=== PATIENT | female | born 1955 | race Caucasian/White ===

== ENCOUNTER 2022-01-21 12:50 | Emergency (ER) | payer OTHER, SELFPAY ==
--- NOTE | ~2022-01-21 | XR_ITS ---
EXAMINATION: XR chest 1V portable DATE: 01/21/2022 15:44 INDICATION: Shortness of breath and cough TECHNIQUE: frontal view of the chest was obtained. COMPARISON: None FINDINGS: The lungs are clear with no focal airspace opacities, pulmonary edema, pleural effusion or pneumothor ax. The cardiomediastinal silhouette is normal. Mild thoracic dextrocurvature. IMPRESSION: 1. No acute cardiopulmonary disease. Reviewed, dictated and finalized at location A. WPF DEVELOPER
[2022-01-21 13:07] VITALS: BP 117/56; PULSE 118; RESP 15; TEMP 36.4; O2SAT 100
--- NOTE | 2022-01-21 15:29 | ED.URI ---
HPI - URI/Sore Throat General Chief Complaint: Upper Respiratory Infection Stated Complaint: cough and cold symptoms, SOB Time Seen by Provider: 01/21/22 15:05 History of Present Illness HPI Narrative: Patient is a 66-year-old female with a history of hypothyroidism, hypertension, hyperlipidemia presenting with URI symptoms. Patient states that for the last several days she has had nasal congestion, cough and exertional dyspnea. States that her has similar symptoms. States that sometimes she wakes up in the middle of the night with heart palpitations. States that this is a chronic problem but she has noticed it more over the last several days. She denies chest pain, headaches, fever, abdominal pain, nausea or vomiting, diarrhea, leg swelling, dysuria, hematuria. Related Data Allergies Allergy/AdvReac Type Severity Reaction Status Date / Time No Known Allergies Allergy Verified 01/21/22 15:51 Review of Systems Review of Systems: All systems reviewed & are unremarkable except as noted in HPI and below Exam Narrative: GENERAL: Well-appearing, well-nourished, and in no acute distress. HEAD: Normocephalic, atraumatic. EYES: PERRLA and EOMI. ENT: Nares clear, no rhinorrhea or epistaxis. Mucous membranes moist. NECK: Supple. CHEST: Clear to auscultation. No respiratory distress. HEART: Regular rate and rhythm. No murmur heard. Normal peripheral pulses. ABDOMEN: Soft, nontender, nondistended, normal active bowel sounds. EXTREMITIES: Normal range of motion. No edema. SKIN: Warm, dry, no rash. NEURO: No focal deficits. Alert and oriented x3. PSYCH: Normal mood and affect. Course Vital Signs Vital signs: Vital Signs Temperature 97.5 F L 01/21/22 13:07 Pulse Rate 118 H 01/21/22 13:07 Respiratory Rate 15 01/21/22 13:07 Blood Pressure 117/56 L 01/21/22 13:07 Pulse Oximetry 100 01/21/22 13:07 Oxygen Delivery Room Air 01/21/22 13:07 Temperature 97.5 F L 01/21/22 13:07 Pulse Rate 82 01/21/22 17:31 Respiratory Rate 22 H 01/21/22 17:31 Blood Pressure 117/56 L 01/21/22 13:07 Pulse Oximetry 98 01/21/22 17:31 Oxygen Delivery Room Air 01/21/22 16:06 MDM - URI/Sore Throat MDM Narrative Medical decision making narrative: Patient is a 66-year-old female presenting with URI symptoms. Patient initially tachycardic, this had resolved by the time I evaluated her. Normotensive and saturating well on room air. Chest x-ray shows no acute abnormalities. Patient is positive for influenza A. Blood work with mild leukopenia, likely related to viral infection. Potassium was a little low so this was repleted orally. Discussed the work-up with the patient and advised that she try to eat potassium rich foods for the next couple of days as well as drink plenty of fluids. We will send in a prescription for Sadiq Kaplan. Advised that she follow-up with her PCP. Appropriate return precautions given. Patient voiced understanding is agreeable with plan. Discharged in stable condition. Lab Data 01/21/22 15:53 01/21/22 15:53 Labs: Lab Results 01/21/22 01/21/22 01/21/22 Range/Units 15:53 15:53 15:53 WBC 2.8 L (4.5-10.0) K/mm3 RBC 3.54 L (4.2-5.4) M/mm3 Hgb 10.7 L (12.0-15.0) g/dL Hct 31.5 L (37.0-47.0) % MCV 89.0 (80-100) fl MCH 30.2 (26-34) pg MCHC 34.0 (32-36) g/dl RDW 12.3 (11.5-14.5) % Plt Count 229 (150-375) k/mm3 MPV 9.7 (7.4-10.4) fl Immature Gran % (Auto) 0.4 (0-0.5) % Neut % (Auto) 53.5 (45.5-73.1) % Lymph % (Auto) 35.8 (18.3-44.2) % Mckinley % (Auto) 9.9 H (2.6-8.5) % Eos % (Auto) 0.0 (0-4.4) % Baso % (Auto) 0.4 (0.2-1.2) % Lymph # (Auto) 1.01 (0.9-3.2) K/mm3 Mckinley # (Auto) 0.3 (0.1-0.6) K/mm3 Eos # (Auto) 0.0 (0-0.3) K/mm3 Baso # (Auto) 0.0 (0.0-0.1) K/mm3 Abs Immat Gran (auto) 0.01 (0.00-0.031) K/mm3 Absolute Neuts (auto) 1.5 (1.3-6.7) K/mm3 A
[2022-01-21] MEDS: SODIUM CHLORIDE 0.9% IV 1,000 ML 999 ML IV CONT (15:51)
[2022-01-21 16:06] VITALS: O2SAT 98
[2022-01-21 16:07] LABS: Basophils Percent Auto 0.4 % (0.2-1.2); Hematocrit 31.5 % (37.0-47.0); Hemoglobin 10.7 g/dL (12.0-15.0); Immature Granulocyte Absolute 0.01 K/mm3 (0.00-0.031); Immature Granulocyte Percent A 0.4 % (0-0.5); Lymphocytes Absolute Auto 1.01 K/mm3 (0.9-3.2); Lymphocytes Percent Auto 35.8 % (18.3-44.2); Mean Corpuscular Hemoglobin 30.2 pg (26-34); Mean Platelet Volume 9.7 fl (7.4-10.4); Monocytes Absolute Auto 0.3 K/mm3 (0.1-0.6); Monocytes Percent Auto 9.9 % (2.6-8.5); Neutrophils Absolute Auto 1.5 K/mm3 (1.3-6.7); Neutrophils Percent Auto 53.5 % (45.5-73.1); Platelet Count Result 229 k/mm3 (150-375); Red Blood Count 3.54 M/mm3 (4.2-5.4); Red Cell Distribution Width 12.3 % (11.5-14.5); White Blood Count 2.8 K/mm3 (4.5-10.0)
[2022-01-21 16:15] LABS: Alanine Aminotransferase 48 U/L (6-35); Albumin Level 4.1 g/dL (3.5-5.1); Alkaline Phosphatase 91 U/L (38-126); Anion Gap 9 mmol/L (8-16); Aspartate Amino Transferase 42 U/L (14-36); Bilirubin,Total 0.4 mg/dL (0.2-1.3); Blood Urea Nitrogen 25 mg/dL (7-17); Calcium 8.9 mg/dL (8.4-10.2); Carbon Dioxide 27 mmol/L (22-30); Chloride 99 mmol/L (98-107); Estimated CRCL calculation 38 ml/min; Estimated Glomerular Filt Rate 56; Glucose 104 mg/dL (65-110); Potassium 3.3 mmol/L (3.4-5.0); Sodium 135 mmol/L (137-145)
[2022-01-21] MEDS: POTASSIUM CHLORIDE 20 MEQ TABLET 40 MEQ PO (16:39)
[2022-01-21 16:46] LABS: Influenza A QL RT-PCR Positive (Negative); Influenza B QL RT-PCR Negative (Negative); RSV RNA, RT-PCR Negative (Negative); SARS-CoV-2 RNA PCR Negative
[2022-01-21 17:31] VITALS: PULSE 82; RESP 22; O2SAT 98
== END 2022-01-21 18:23 | disposition home or self-care (01) ==
PROVIDERS: Emergency Provider Emergency Medicine
DX: J10.1 Influenza due to other identified influenza virus with other respiratory manifestations (principal); Z20.822 Contact with and (suspected) exposure to COVID-19; I10 Essential (primary) hypertension; E78.5 Hyperlipidemia, unspecified; E03.9 Hypothyroidism, unspecified
CPT/HCPCS: 36415; 71045; 80053; 85025; 87637; 96360; 99283; A9270; J7030

== ENCOUNTER 2023-04-19 11:46 | Outpatient (CLI) | payer MEDICARE, SELFPAY ==
--- NOTE | 2023-04-19 12:46 | ECG_ITS ---
Measurements Intervals [place] Rate: 59 P: 21 CT: 136 QRS: 42 QRSD: 90 T: 27 QT: 396 QTc: 392 Interpretive Statements SINUS BRADYCARDIA EARLY PRECORDIAL R/S TRANSITION BASELINE ARTIFACT- I, II, III, AVR, AVL, AVF, V1-V6 BORDERLINE ECG NO PREVIOUS ECG AVAILABLE FOR COMPARISON Electronically Signed On 04-19-2023 13:06:09 CDT by Dimas Rooney D.O.
[2023-04-19 13:07] LABS: Basophils Percent Auto 0.4 % (0.2-1.2); Eosinophils Absolute Auto 0.1 K/mm3 (0-0.3); Eosinophils Percent Auto 1.7 % (0-4.4); Hematocrit 32.2 % (37.0-47.0); Hemoglobin 10.9 g/dL (12.0-15.0); Immature Granulocyte Absolute 0.01 K/mm3 (0.00-0.031); Immature Granulocyte Percent A 0.1 % (0-0.5); Lymphocytes Absolute Auto 1.94 K/mm3 (0.9-3.2); Lymphocytes Percent Auto 28.2 % (18.3-44.2); Mean Corpuscular HGB Conc 33.9 g/dl (32-36); Mean Corpuscular Hemoglobin 30.6 pg (26-34); Mean Corpuscular Volume 90.4 fl (80-100); Mean Platelet Volume 9.6 fl (7.4-10.4); Monocytes Absolute Auto 0.6 K/mm3 (0.1-0.6); Monocytes Percent Auto 8.3 % (2.6-8.5); Neutrophils Absolute Auto 4.2 K/mm3 (1.3-6.7); Neutrophils Percent Auto 61.3 % (45.5-73.1); Platelet Count Result 284 k/mm3 (150-375); Red Blood Count 3.56 M/mm3 (4.2-5.4); Red Cell Distribution Width 12.4 % (11.5-14.5); White Blood Count 6.9 K/mm3 (4.5-10.0)
[2023-04-19 13:19] LABS: Partial Thromboplastin Time 33.6 Seconds (22.3-36.8)
[2023-04-19 13:22] LABS: Alanine Aminotransferase 23 U/L (6-35); Alkaline Phosphatase 126 U/L (38-126); Anion Gap 4 mmol/L (8-16); Aspartate Amino Transferase 25 U/L (14-36); Bilirubin,Total 0.8 mg/dL (0.2-1.3); Blood Urea Nitrogen 17 mg/dL (7-17); Calcium 9.1 mg/dL (8.4-10.2); Carbon Dioxide 27 mmol/L (22-30); Chloride 99 mmol/L (98-107); Estimated Glomerular Filt Rate > 60; Glucose 98 mg/dL (65-110); Potassium 3.8 mmol/L (3.4-5.0); Sodium 130 mmol/L (137-145)
== END 2023-04-19 11:47 | disposition home or self-care (01) ==
LOC: ANHSURGERY 11:51
PROVIDERS: PCP Registered Nurse; Visit Provider Urology
DX: N81.4 Uterovaginal prolapse, unspecified (principal); I10 Essential (primary) hypertension; Z01.818 Encounter for other preprocedural examination
CPT/HCPCS: 36415; 80053; 85025; 85610; 85730; 86850; 86900; 86901; 93005

== ENCOUNTER 2023-04-30 01:00 | Day surgery (SDC) | payer MEDICARE, SELFPAY ==
--- NOTE | 2023-04-19 12:20 | PC.NURSE ---
Report to the Outpatient Waiting Room, entrance under the green pavilion located off [facility], at time __1000 on date __04/30/23 . Planned Procedure Time: _1200 . Time changes happen often and if your time is changed the preop area will call you the afternoon before. - You and your visitor will be asked to self-screen and do not enter if you have any COVID symptoms. - A mask is optional within the hospital at this time. Patients may have clear liquids (water, carbonated beverages, clear teas, apple juice) until 3 hours prior to surgery( 9 :00 AM) with a maximum of 20 ounces. - No food from midnight until time of surgery - Infants may have breast milk until 4 hours before surgery, infant formula 6 hours prior to surgery. - Children will be allowed to drink immediately following surgery. If applicable, please bring a bottle or sippy cup to assist with drinking. Juice, water, soda, and popsicles are readily available. For infants on formula, please bring formula the day of surgery. Pacifiers are allowed. Take the following medications with a SIP of water the morning of surgery: ___LIOTHYRONINE DO NOT STOP ANY OF YOUR OTHER PRESCRIPTION MEDICATIONS PRIOR TO SURGERY ?EXCEPT THE FOLLOWING Medications to discontinue per physician ___PT STATES ALL VITAMINS AND SUPPLEMENTS _LAST TAKEN ONE MONTH AGO Please no make-up, nail marshallese, hairspray, perfume, deodorant, or body powder the day of surgery. No jewelry (including any body piercings) or valuables the day of surgery, leave them at home. Please take a shower or bath the night before, or the morning of, surgery with an antibacterial soap. Wear comfortable, loose fitting clothing. Children are encouraged to wear pajamas. - Jewelry must be removed prior to entering the operating room. Rings and piercings that are not removed may be cut off. - The hospital will not accept responsibility for valuables. - Please leave all valuables, including medications, at home the day of surgery. If you are going home after surgery, a licensed class b truck driver must drive you home. - NO public transportation without another adult if you receive anesthesia. - We recommend that an adult stay with you for 24 hours following discharge. - We also recommend that you do not drive, make important decision, drink alcoholic beverages, or take any drugs that were not prescribed by your health care provider for at least 24 hours after your discharge time. Follow any additional instructions given to you from your surgeon. If you or anyone in your household have experienced Covid symptoms in the past week, please notify your surgeon or the nurse liaison at the phone number below for possible testing. VERBAL AND WRITTEN instructions given to PATIENT AND SPOUSE BILLY and asked if any additional questions and then verbalized understanding. Patient advised to call surgeon office or pre surgery nurse liaison [phone] if any additional questions.
[2023-04-19 12:41] VITALS: BMI 26.3
--- NOTE | 2023-04-27 16:04 | PM.IMHP ---
H&P: HPI History of Present Illness Date/Time: 04/27/23 16:04 Chief Complaint: POP/occult ISHAN Narrative: 67 yo with POP and ISHAN on urodynamics Review of Systems Review of Systems: All systems reviewed & are unremarkable except as noted in HPI and below PMFSH Past Medical History Medical History Diabetes History of vaginal delivery Hypertension Hypothyroidism Seasonal allergies Surgical History Surgical History History of breast biopsy History of colonoscopy 2019 History of tubal ligation Family History Family History Father Diabetes mellitus Hypertension Heart disease Mother Hypertension Social History Social History Smoking status: Never smoker Second hand tobacco smoke exposure: Yes () Alcohol intake: current Alcohol use details: Rarely a glass of wine on holidays. Substance use: never Substance use type: does not use Do You Feel Safe in your Home?: Yes Lack of Transportation: No Lack of Food: Never True Current Housing: I Have Housing Concerned About Future Housing: No Difficulty Paying Gas/Electric Bills: No Difficulty Paying for Meds: No Currently Unemployed: No Living arrangements: with family Occupation/Education: retired Gender identity (if verbalized by the patient): Female Sexual Orientation (if Verbalized by the Patient): Straight or Heterosexual Spiritual care concerns: No Meds Home Medications and Allergies Home Medications Medication Instructions Recorded Confirmed Type atorvastatin 20 mg tablet 20 mg PO DAILY 09/20/22 04/19/23 History lisinopril 10 1 tablet PO DAILY 09/20/22 04/19/23 History mg-hydrochlorothiazide 12.5 mg tablet magnesium 250 mg tablet 250 mg PO 2XW 09/20/22 04/19/23 History metformin 500 mg tablet 500 mg PO BID 09/20/22 04/19/23 History metoprolol succinate 50 mg 25 mg PO QHS 09/20/22 04/19/23 History tablet,extended release 24 hr liothyronine 50 mcg tablet 50 mcg PO DAILY 01/01/23 04/19/23 History estradiol 0.01% (0.1 mg/gram) 1 g vaginal 2XW #42.5 grams 03/27/23 04/19/23 Rx vaginal cream cholecalciferol (vitamin D3) 250 250 mcg PO WEEKLY 04/19/23 04/19/23 History mcg (10,000 unit) capsule cyanocobalamin (vitamin B-12) 5,000 mcg sublingual 2XW 04/19/23 04/19/23 History 5,000 mcg sublingual tablet Allergies Allergy/AdvReac Type Severity Reaction Status Date / Time No Known Allergies Allergy Verified 04/19/23 11:59 Exam Narrative: anterior wall +3 apex at 0 + urethral mobility Assessment and Plan Assessment and plan (1) Uterine prolapse without vaginal wall prolapse: Code(s): N81.4 - Uterovaginal prolapse, unspecified Status: Acute (2) ISHAN (stress urinary incontinence, female): Code(s): N39.3 - Stress incontinence (female) (male) Status: Acute Plan Robotic Sacral colpopexy and urethral sling. Risks, benifits, alternative outlined in office chart
[2023-04-30] VITALS (7 sets, daily range): BP systolic 123–155; BP diastolic 47–113; PULSE 71–93; RESP 15–17; TEMP 35.9–37.2; O2SAT 93–100
--- NOTE | 2023-04-30 04:36 | WPDHPUPDATE1 ---
History and Physical Update Update Date/Time: 04/30/23 04:36 History and Physical has been reviewed, including an updated exam of the patient. There are NO changes in the patient's condition. Risks, benefits, and alternatives have been discussed and questions answered. Patient agrees to proceed with procedure.
--- NOTE | 2023-04-30 07:13 | PM.IMHP ---
H&P: HPI History of Present Illness Date/Time: 04/30/23 07:13 Chief Complaint: prolapse Narrative: Yocasta is a postmenopausal 67yo P2002 who presents for scheduled surgery. She has prolapse and has already seen Dr. Mcclendon, who will fix the prolapse. She reports going through menopause naturally; denies any PMB. She has a normal pap smear 2022. She has been noticing the prolapse over the last 2 years as it has been worsening and causing more discomfort. She is ready for surgery. She is not sexually active. She does report some vaginal dryness. Review of Systems Constitutional: Constitutional: Denies chills, Denies fever(s) and Denies headache(s) Eyes: Eyes: Denies change in vision ENT: Denies dizziness and Denies headache(s) Cardiovascular: Cardiovascular: Denies chest pain and Denies dyspnea Respiratory: Respiratory: Denies cough and Denies dyspnea Gastrointestinal: Gastrointestinal: Denies abdominal pain and Denies change in stool character Genitourinary: Genitourinary: Denies abnormal vaginal bleeding, Denies pelvic pain, Denies vaginal discharge, Denies vaginal odor and Denies vaginal pruritus Neurologic: Denies dizziness and Denies headache(s) Psychiatric: Psychiatric: Denies anxiety and Denies depression [facility] Past Medical History Medical History Diabetes History of vaginal delivery Hypertension Hypothyroidism Seasonal allergies Surgical History Surgical History History of breast biopsy History of colonoscopy 2019 History of tubal ligation Family History Family History Father Diabetes mellitus Hypertension Heart disease Mother Hypertension Social History Social History Smoking status: Never smoker Second hand tobacco smoke exposure: Yes () Alcohol intake: current Alcohol use details: Rarely a glass of wine on holidays. Substance use: never Substance use type: does not use Do You Feel Safe in your Home?: Yes Lack of Transportation: No Lack of Food: Never True Current Housing: I Have Housing Concerned About Future Housing: No Difficulty Paying Gas/Electric Bills: No Difficulty Paying for Meds: No Currently Unemployed: No Living arrangements: with family Occupation/Education: retired Gender identity (if verbalized by the patient): Female Sexual Orientation (if Verbalized by the Patient): Straight or Heterosexual Spiritual care concerns: No Meds Home Medications and Allergies Home Medications Medication Instructions Recorded Confirmed Type atorvastatin 20 mg tablet 20 mg PO DAILY 09/20/22 04/19/23 History lisinopril 10 1 tablet PO DAILY 09/20/22 04/19/23 History mg-hydrochlorothiazide 12.5 mg tablet magnesium 250 mg tablet 250 mg PO 2XW 09/20/22 04/19/23 History metformin 500 mg tablet 500 mg PO BID 09/20/22 04/19/23 History metoprolol succinate 50 mg 25 mg PO QHS 09/20/22 04/19/23 History tablet,extended release 24 hr liothyronine 50 mcg tablet 50 mcg PO DAILY 01/01/23 04/19/23 History estradiol 0.01% (0.1 mg/gram) 1 g vaginal 2XW #42.5 grams 03/27/23 04/19/23 Rx vaginal cream cholecalciferol (vitamin D3) 250 250 mcg PO WEEKLY 04/19/23 04/19/23 History mcg (10,000 unit) capsule cyanocobalamin (vitamin B-12) 5,000 mcg sublingual 2XW 04/19/23 04/19/23 History 5,000 mcg sublingual tablet Allergies Allergy/AdvReac Type Severity Reaction Status Date / Time No Known Allergies Allergy Verified 04/19/23 11:59 Exam Const: General: cooperative, healthy appearing, comfortable and no acute distress Orientation/consciousness: patient oriented x3 Resp: Effort & Inspection: normal respiratory effort Cardio: Rate: regular rate GI: Inspection: normal to inspection GI Palp: No abdominal tendern
[2023-04-30] MEDS: ACETAMINOPHEN 500 MG TABLET 1000 MG PO (10:23)
[2023-04-30 10:51] LABS: Glucose Point of Care 108 mg/dl (65-105)
[2023-04-30] MEDS: LACTATED RINGERS 1,000 ML 30 ML IV CONT ×2 (10:52→14:50)
[2023-04-30] MEDS: KETOROLAC 15 MG/ML VIAL (*BKC) IV PUSH ×2 (10:52→16:23)
--- NOTE | 2023-04-30 10:55 | WPDANESEPPF ---
Anes - Initial Pre Proc Eval Procedure: Operation Date: 04/30/23 12:00 Proposed Procedures p Robotic Sacrocolpopexy, Urethral Sling - Vishal Mcclendon MD s Robotic Assisted Laparoscopic Supracervical Hysterectomy with Bilateral Salpingectomy - Asia Casanova MD Date/Time: 04/30/23 10:55 Surgeon: Vishal Mcclendon MD Pre Op Diagnosis: incomp utero vag prolapse, cystocele, stress incon Patient Data Age: 67 Gender: F Height: 1.57 m Weight: 63.2 kg Allergies Allergy/AdvReac Type Severity Reaction Status Date / Time No Known Allergies Allergy Verified 04/30/23 10:18 Home Medications Medication Instructions Recorded Confirmed Type atorvastatin 20 mg tablet 20 mg PO DAILY 09/20/22 04/30/23 History lisinopril 10 1 tablet PO DAILY 09/20/22 04/30/23 History mg-hydrochlorothiazide 12.5 mg tablet magnesium 250 mg tablet 250 mg PO 2XW 09/20/22 04/30/23 History metformin 500 mg tablet 500 mg PO BID 09/20/22 04/30/23 History metoprolol succinate 50 mg 25 mg PO QHS 09/20/22 04/30/23 History tablet,extended release 24 hr liothyronine 50 mcg tablet 50 mcg PO DAILY 01/01/23 04/30/23 History estradiol 0.01% (0.1 mg/gram) 1 g vaginal 2XW #42.5 grams 03/27/23 04/30/23 Rx vaginal cream cholecalciferol (vitamin D3) 250 250 mcg PO WEEKLY 04/19/23 04/30/23 History mcg (10,000 unit) capsule cyanocobalamin (vitamin B-12) 5,000 mcg sublingual 2XW 04/19/23 04/30/23 History 5,000 mcg sublingual tablet Laboratory Tests 04/30/23 04/30/23 10:41 10:44 Sodium Pending POC Capillary Glucose 108 H mg/dl (65-105) Patient hx anesthesia problems: none Family hx anesthesia problems: none Results Review: All pre-operative results and documents have been reviewed as part of the pre-operative evaluation. [facility] Past Medical History Medical History Diabetes History of vaginal delivery Hypertension Hypothyroidism Seasonal allergies Surgical History Surgical History History of breast biopsy History of colonoscopy 2019 History of tubal ligation Family History Family History Father Diabetes mellitus Hypertension Heart disease Mother Hypertension Social History Social History Smoking status: Never smoker Second hand tobacco smoke exposure: Yes () Alcohol intake: current Alcohol use details: Rarely a glass of wine on holidays. Substance use: never Substance use type: does not use Do You Feel Safe in your Home?: Yes Lack of Transportation: No Lack of Food: Never True Current Housing: I Have Housing Concerned About Future Housing: No Difficulty Paying Gas/Electric Bills: No Difficulty Paying for Meds: No Currently Unemployed: No Living arrangements: with family Occupation/Education: retired Gender identity (if verbalized by the patient): Female Sexual Orientation (if Verbalized by the Patient): Straight or Heterosexual Spiritual care concerns: No Anes - Eval Final PreProcedure Day of Procedure 04/30/23 10:55 Patient weight: normal Heart: regular rate and rhythm Lungs: clear to auscultation Airway: Mallampati scale class II Neurological: alert and oriented Last oral intake: >/= 8 hours ASA classification: III Emergent: no Anesthetic plan: proceed Anesthesia type and monitoring: general ETT and standard monitoring Results Review: All pre-operative results and documents have been reviewed as part of the pre-operative evaluation. Informed Consent: The patient's anesthetic plan and its attendant risks and benefits were discussed with the patient/family/POA. Questions were solicited and answers provided to the satisfaction of the patient/family/POA.
[2023-04-30 10:58] LABS: Sodium 135 mmol/L (137-145)
--- NOTE | 2023-04-30 11:41 | WPDHPUPDATE1 ---
History and Physical Update Update Date/Time: 04/30/23 11:41 History and Physical has been reviewed, including an updated exam of the patient. There are NO changes in the patient's condition. Risks, benefits, and alternatives have been discussed and questions answered. Patient agrees to proceed with robotic assisted laparoscopic supracervical hysterectomy with bilateral salpingo-oophorectomy.
[2023-04-30] MEDS: ceFAZolin 2 GM/D5W 50 ML 2 GM/50 ML BAG IVPB (11:59)
[2023-04-30] MEDS: metroNIDAZOLE 500 MG/ISO 100ML 500 MG/100 ML BAG 100 MG IVPB ×2 (12:14→21:17)
--- NOTE | 2023-04-30 12:37 | SUR.OPER ---
port placement per Dr Mcclendon [id number] to [id number]
[2023-04-30] MEDS: BUPIVACAINE/EPINEPHRINE 0.5% 50 ML VIAL 40 ML INFILTRATE (12:54)
--- NOTE | 2023-04-30 13:14 | P.OP_ITS ---
Procedure Note - Detailed Date of Procedure 04/30/23 Pre-op Diagnosis incomp utero vag prolapse, cystocele, stress incon Post-op Diagnosis Same Procedure Performed Robotic assisted laparoscopic supracervical hysterectomy with bilateral sa lpingo-oophorectomy Surgeon Asia Casanova MD Coding Auditor Chang Anesthesia General Findings Normal uterus. Bilateral fallopian tubes with Filshie clips. Normal bilateral ovaries. Adhesions of the bladder to the cervix. Good hemostasis at end of case. Description of Procedure Yocasta was taken to the operating room where she was placed under general anesthesia without issues. She received 2 g Ancef and 500mg Metronidazole. She was then prepped and draped in the usual sterile fashion in the dorsal lithotomy position with her legs in low Dariel stirrups, her arms tucked at her side, with a strap over her chest. A time-out was performed with both Dr. Mcclendon and I in the room. Dr. Mcclendon then scrubbed in and placed the 5 laparoscopic ports. The patient was then placed in steep Trendelenburg, with the legs slightly lowered. Dr. Mcclendon then docked the robot and placed the instruments intra-abdominally under direct visualization. I then went to the robotic console. I then started my hysterectomy on the left side. The small adhesions from the pelvic side wall to the colon were taken down using the mono-polar scissors without complications. The ureter was easily identified transperitoneally and well out of the surgical field. The IP ligament was identified and serially clamped, coagulated, and transected with good hemostasis. The broad ligament was then sequentially clamped, coagulated, and transected working in the direction of the round ligament. The round ligament was clamped, coagulated, and transected. The broad ligament was then further dissected anteriorly and posteriorly skeletonizing the uterine artery. The bladder flap was then developed on the left side and carried around the right, anteriorly. The uterine artery was then serially clamped and coagulated. Once the vessel was adequately coagulated, it was then transected with good hemostasis. The same procedure was then performed on the right side without complications. All pedicles were found to be hemostatic. The uterus was noted to be devascularized. The bladder flap was verified out of the surgical field and the uterus was transected from the cervix. Good hemostasis was noted. The uterus, bilateral fallopian tubes, and ovaries were placed within a bag. All pedicles were once again examined and found to be hemostatic. Dr. Mcclendon then took over the robot and continued his case to repair the prolapse. At the end of the case, my EBL was 10cc. Estimated Blood Loss 10 Pathology Yes (uterus with bilateral fallopian tubes and ovaries) Complications No immediate complications Condition Stable Disposition No change [facility] Billing Surgery - Charge Forward: Surgery Billing
--- NOTE | 2023-04-30 14:45 | W.PM.PROC2 ---
Procedure Note - Detailed Date of Procedure 04/30/23 Pre-op Diagnosis incomp utero vag prolapse, cystocele, stress incon Post-op Diagnosis Same Procedure Performed Robotic assisted laparoscopic sacral colpopexy Urethral sling Cystoscopy Surgeon Vishal Mcclenodn MD Anesthesia General Indications A woman with uterine prolapse as well as stress incontinence. She desires surgical correction. She is here for the above. She understands risks of bleeding, infection, diskitis, damage to surrounding organs, bowel injury, bowel obstruction, mesh related complications including exposure and extrusion, postoperative voiding dysfunction including incontinence and retention, need for ancillary procedures, dyspareunia, recurrence of prolapse, and other perioperative intraoperative postoperative complications. She agrees to proceed. Findings See below Description of Procedure She was correctly identified. Informed consent obtained. She from the operating room. She was given general anesthesia. She was given appropriate perioperative antibiotics. She was placed a low lithotomy position. Pressure points were padded. A time-out performed. I marked out the skin 3 fingerbreadths cephalad to the umbilicus. I anesthetized the skin. I incised the skin. I dissected down to the fascia. I grasped the fascia with Beckie clamps. I entered the fascia sharply in a Garay type technique. I placed sutures for later fascial closure. I placed a midline trocar. I examined the abdomen. There is no sign of any injury. Under direct vision I placed 2 additional trocars in the right upper quadrant and 2 additional trocars the left upper quadrant. She was placed in steep Trendelenburg. The robot was docked. Her blending supervisor completed their portion of the procedure. Please see that operative report for details. The specimen was left in a bag and was extracted intact at the end the case I then sat at the console. The Sizer in the vagina created plane on the anterior and posterior vaginal wall. I took great care not to injure the vagina, bladder, or rectum. I introduced the mesh into the abdomen. I sewed the anterior leaflet of mesh on the anterior vaginal wall. I sewed the posterior leaflet of mesh on the posterior vaginal wall. This was done with several sutures of 2 0 [place]. I reflected the colon laterally. She had very redundant colon. I opened the posterior peritoneum over the sacral promontory. I carried this into the cul-de-sac. I freed up the edges for later retroperitonealization. I located the anterior longitudinal ligament the sacrum. I cleaned off all fatty tissues. I then tensioned my mesh appropriately. I did a vaginal exam the bedside. I assured prolapse reduction without undue tension. I then sewed the proximal leaflet of mesh onto the anterior longitudinal ligament of the sacrum with 4 sutures of 2 0 [place]. I then used a 2 0 Monocryl to completely and meticulously retroperitonealized all mesh. I allowed the colon to go back to its normal anatomic location. There is no sign of any impingement. The specimen was then removed. All ports removed. Fascia was tied down. Additional sutures were placed fully close the fascia. Skin was closed with Monocryl and surgical glue. She was repositioned and prepped for urethral sling. She has small cystocele due to redundant anterior vaginal tissue. I elected to not perform any additional plication procedure. I marked out the inner thigh incisions. I anesthetized the skin and made the incisions. I then anesthetized the anterior vaginal wall at the mid urethra. I made a 1 cm incision. I dissected out laterally taking great care not to injure the refilled vaginal wall. I passed the helical trocars. I did this 1st on the left and then on the right. This was done from the thigh incision towards the vaginal incision. Sling was connected to the trocars and brought out the thigh incision. I tensioned
[2023-04-30 15:22] LABS: Glucose Point of Care 136 mg/dl (65-105)
--- NOTE | 2023-04-30 15:26 | SUR.PHASEI ---
1525: Simple mask removed.
--- NOTE | 2023-04-30 16:00 | PC.NURSE ---
This patient, Yocasta Ba, was received from PACU per bed to room 284. Patient/family oriented to unit policies and routines
[2023-04-30] MEDS: KCL 20 MEQ/D5/0.45% SOD CHL 1,000 ML 100 ML IV CONT (16:11)
[2023-04-30] MEDS: metFORMIN HCL 500 MG TABLET PO (18:00)
[2023-04-30] MEDS: ceFAZolin 1 GM/NS 50 ML 1 GM/50 ML BAG IVPB (20:04)
[2023-04-30] MEDS: SIMETHICONE 80 MG TAB.CHEW (20:11)
[2023-04-30] MEDS: METOPROLOL SUCCINATE EXT REL 25 MG TABCR PO (21:17)
[2023-04-30] MEDS: HYDROcodone/acetaminophen (*CRX) 5-325 MG TABLET 1 TAB PO (21:25)
[2023-04-30 21:26] LABS: Glucose Point of Care 188 mg/dl (65-105)
[2023-05-01] MEDS: KCL 20 MEQ/D5/0.45% SOD CHL 1,000 ML 100 ML IV CONT (04:02)
[2023-05-01] MEDS: ceFAZolin 1 GM/NS 50 ML 1 GM/50 ML BAG IVPB ×2 (04:03→12:12)
[2023-05-01 04:08] VITALS: BP 113/46; PULSE 66; RESP 16; TEMP 36.9
[2023-05-01 04:41] LABS: Estimated CRCL calculation 48 ml/min; Estimated Glomerular Filt Rate > 60
[2023-05-01] MEDS: metroNIDAZOLE 500 MG/ISO 100ML 500 MG/100 ML BAG 100 MG IVPB (05:03)
[2023-05-01] MEDS: KETOROLAC 15 MG/ML VIAL (*BKC) IV PUSH (06:48)
--- NOTE | 2023-05-01 06:52 | PM.GYNPNOP ---
FLIGHT COORDINATOR - A/P Assessment and plan (1) Status post laparoscopic supracervical hysterectomy: Code(s): Z90.711 - Acquired absence of uterus with remaining cervical stump Status: Acute (2) S/P BSO (bilateral salpingo-oophorectomy): Code(s): Z90.722 - Acquired absence of ovaries, bilateral Status: Acute Postoperative Procedures: Procedures Operation Date: 04/30/23 12:00 Actual Procedure Side Surgeon p Robotic Sacrocolpopexy, Urethral Sling Not Applicable Vishal Mcclendon MD s Robotic Assisted Laparascopic Supracervical Hysterectomy with Bilateral Salpingo-Oophorectomy Bilateral Asia Casanova MD Postoperative day: 1 Postoperative status: doing well Postoperative plan: routine post-op care and discharge Time Spent With Patient Time: Total time spent is greater than 50% in coordination of care (as documented) at patient's floor/unit and/or counseling patient: Time with patient: less than 15 minutes FLIGHT COORDINATOR- PN:Subj Post-Op Subjective Date/time seen: 05/01/23 06:52 Interval history: POD#1 Yocasta reports doing well today. No issues overnight. Her pain is controlled with PO meds. She has tolerated regular diet. She denies any vaginal bleeding. She has voided. She has passed flatus. She has ambulated and denies any symptoms of anemia. Review of Systems Review of Systems: All systems reviewed & are unremarkable except as noted in HPI and below (HPI) Constitutional: Constitutional: Denies chills, Denies fever(s) and Denies headache(s) Eyes: Eyes: Denies change in vision ENT: Denies dizziness and Denies headache(s) Cardiovascular: Cardiovascular: Denies chest pain and Denies rapid heart rate Respiratory: Respiratory: Denies cough Genitourinary: Genitourinary: Denies abnormal vaginal bleeding Neurologic: Denies dizziness and Denies headache(s) Exam Const: General: cooperative, healthy appearing, comfortable and no acute distress Orientation/consciousness: patient oriented x3 Resp: Effort & Inspection: normal respiratory effort Auscultation: clear to auscultation bilaterally Cardio: Rate: regular rate GI: Inspection: normal to inspection and incision (5 LSC incisions ) GI Palp: Yes abdominal tenderness (appropriate) and Yes Soft to palpation Auscultation: normal bowel sounds : Other: normal bleeding on pad Skin: General skin exam: normal color Neuro: General: patient oriented x3 Psych: Appearance: grossly normal Affect: normal affect Attitude: cooperative FLIGHT COORDINATOR - PN: Obj Data Vital Signs Vital Signs: Vital Signs - 24 hr 04/30/23 11:06 04/30/23 14:50 04/30/23 15:05 Temperature 99 F 96.7 F L Pulse Rate 71 73 81 Respiratory Rate 16 16 17 Blood Pressure 123/47 L 144/57 H 155/113 H Pulse Oximetry 100 100 100 Oxygen Delivery Room Air Simple Face Mask Simple Face Mask Oxygen Flow Rate 10 10 04/30/23 15:20 04/30/23 15:35 04/30/23 16:05 Temperature 97.0 F L 97.1 F L 97.4 F L Pulse Rate 84 88 92 Respiratory Rate 17 15 16 Blood Pressure 155/53 H 141/52 H 144/53 H Pulse Oximetry 98 93 97 Oxygen Delivery Simple Face Mask Room Air Oxygen Flow Rate 10 04/30/23 20:08 05/01/23 04:08 Temperature 98.9 F 98.5 F Pulse Rate 93 66 Respiratory Rate 16 16 Blood Pressure 133/57 L 113/46 L Pulse Oximetry Oxygen Delivery Oxygen Flow Rate Intake/Output Intake/Output: Intake & Output 04/28/23 04/29/23 04/30/23 05/01/23 23:59 23:59 23:59 23:59 Intake Total 600 1350 Output Total 40 800 Balance 560 550 Meds/Results Medications: Active Medications Generic Name Dose Route Start Last Admin Trade Name Freq PRN Reason Stop Dose Admin Acetaminophen 650 mg 04/30/23 12:10 Acetaminophen 325 Mg Tablet PO Q4H PRN Mild Pain (1-3) or Fever Hydrocodone Bitart/Acetaminophen 1 tab 04/30/23 12:10 04/30/23 21:25 Hydrocodone/Acetaminophen (*Crx) 5-325 Mg Tablet PO 1 tab Q4H PRN Administration Pain Rated 4-5 Cephalexin
[2023-05-01 06:56] VITALS: BP 122/50; PULSE 65; RESP 20; TEMP 37.1; O2SAT 96
[2023-05-01 07:45] VITALS: BP 123/53
[2023-05-01] MEDS: hydroCHLOROthiazide 12.5 MG CAPSULE PO (08:53)
[2023-05-01] MEDS: metFORMIN HCL 500 MG TABLET PO (08:54)
[2023-05-01] MEDS: DOCUSATE SODIUM 100 MG CAPSULE PO (08:54)
[2023-05-01] MEDS: lisinopriL 10 MG TABLET PO (08:54)
[2023-05-01] MEDS: ENOXAPARIN 30 MG/0.3 ML SYRINGE SUB-Q (08:55)
[2023-05-01 09:02] LABS: Glucose Point of Care 110 mg/dl (65-105)
== END 2023-05-01 13:13 | disposition home or self-care (01) ==
LOC: ANHSURGERY 10:12 → ANHOB2 16:21
PROVIDERS: Anesthesiology; Obstetrics & Gynecology; PCP Registered Nurse; Visit Provider Urology
PROC: (CPT 57425; principal; 2023-04-30 12:00)
PROC: (CPT 58542; 2023-04-30 12:00)
DX: N81.2 Incomplete uterovaginal prolapse (principal); N39.3 Stress incontinence (female) (male); N80.03 Adenomyosis of the uterus; N83.8 Other noninflammatory disorders of ovary, fallopian tube and broad ligament; N83.292 Other ovarian cyst, left side; N83.291 Other ovarian cyst, right side; E11.9 Type 2 diabetes mellitus without complications; I10 Essential (primary) hypertension; E03.9 Hypothyroidism, unspecified; Z79.84 Long term (current) use of oral hypoglycemic drugs
CPT/HCPCS: 57425; 57288; 58542; S2900 ×2; 36415; 80053; 82565; 82948; 84295; 85025; 85610; 85730; 86850; 86900; 86901; 88307; 93005; 99199; A9270; C1771; C1781; J0690; J1100; J1170; J1650; J1836; J1885; J2250; J2371; J2405; J2704; J3010; J3480; J7030; J7120

== ENCOUNTER 2024-08-10 10:31 | Emergency (ER) | payer MEDICARE, SELFPAY ==
[2024-08-10 10:41] VITALS: BP 126/46; PULSE 69; RESP 16; TEMP 36.5; O2SAT 100
[2024-08-10 10:54] LABS: EDUAAPPEAR Cloudy; EDUABILI Negative (Negative); EDUABLOOD 3+ (Negative); EDUACOLOR1 Yellow; EDUAGLUCOSE Negative (Negative); EDUAKETONE Negative (Negative); EDUALEUKO 1+ (Negative); EDUANITRATE Negative (Negative); EDUAPH 7.0; EDUAPROTEIN 3+ (Negative); EDUASPGRAVITY 1.020; EDUAUROBILI 0.2
--- NOTE | 2024-08-10 10:58 | ED.FEMALEGU ---
HPI - Female Genitourinary General Chief complaint: Urogenital-Female Stated complaint: urinary irritation Time Seen by Provider: 08/10/24 10:40 Source: patient Mode of arrival: ambulatory Limitations: no limitations History of Present Illness HPI Narrative: 69-year-old female presents with complaint of urinary frequency, urgency, dysuria for 4 days. Afebrile. No back or abdominal pain. Denies nausea vomiting. All systems reviewed and negative except as noted above. Related Data Home Medications ?Medication ?Instructions ?Recorded ?Confirmed ?Last Taken ?Type lisinopril 10 1 tablet PO DAILY 09/20/22 06/14/23 04/29/23 History mg-hydrochlorothiazide 12.5 mg tablet magnesium 250 mg tablet 250 mg PO 2XW 09/20/22 06/14/23 04/01/23 History metformin 500 mg tablet 500 mg PO BID 09/20/22 06/14/23 04/29/23 History metoprolol succinate 50 mg 25 mg PO QHS 09/20/22 06/14/23 04/29/23 History tablet,extended release 24 hr liothyronine 50 mcg tablet 50 mcg PO DAILY 01/01/23 06/14/23 04/30/23 06:00 History cholecalciferol (vitamin D3) 250 250 mcg PO WEEKLY 04/19/23 06/14/23 04/01/23 History mcg (10,000 unit) capsule cyanocobalamin (vitamin B-12) 5,000 mcg sublingual 2XW 04/19/23 06/14/23 04/01/23 History 5,000 mcg sublingual tablet pravastatin 20 mg tablet mg 08/10/24 Unknown History Allergies Allergy/AdvReac Type Severity Reaction Status Date / Time No Known Allergies Allergy Verified 08/10/24 10:49 Review of Systems Review of Systems: CONSTITUTIONAL: Denies fever, chills, or sweats. EYES: Denies visual changes, redness, or discharge. ENT: Denies rhinorrhea, congestion, sore throat, or otalgia. CARDIOVASCULAR: Denies chest pain, palpitations, or edema. RESPIRATORY: Denies cough or dyspnea. GASTROINTESTINAL: Denies abdominal pain, nausea, vomiting, or diarrhea. GENITOURINARY: reports dysuria , frequency, urgency. Denies hematuria. SKIN: Denies rash or itching. MUSCULOSKELETAL: Denies back pain, joint pain, or myalgia. NEUROLOGIC: Denies headache, numbness, or weakness. PSYCHIATRIC: Denies anxiety or depression. All other systems reviewed are negative, except as documented in HPI. [facility] Past Medical History Medical History Diabetes History of vaginal delivery Hypertension Hypothyroidism Seasonal allergies Surgical History Surgical History History of breast biopsy History of colonoscopy 2019 History of tubal ligation S/P BSO (bilateral salpingo-oophorectomy) Robotic assisted laparoscopic sacral colpopexy Status post laparoscopic supracervical hysterectomy Family History Family History Father Diabetes mellitus Hypertension Heart disease Mother Hypertension Social History Social History Smoking status: Never smoker Second hand tobacco smoke exposure: Yes () Alcohol intake: current Alcohol use details: Rarely a glass of wine on holidays. Substance use: never Substance use type: does not use Do You Feel Safe in your Home?: Yes Lack of Transportation: No Lack of Food: Never True Current Housing: I Have Housing Concerned About Future Housing: No Difficulty Paying Gas/Electric Bills: No Difficulty Paying for Meds: No Currently Unemployed: No Living arrangements: with family Occupation/Education: retired Gender identity (if verbalized by the patient): Female Sexual Orientation (if Verbalized by the Patient): Straight or Heterosexual Spiritual care concerns: No Comments At time of signature, agree with nursing past medical, surgical, social and family history. There is no relevant family history pertinent to the presenting complaint. Exam Narrative: GENERAL: This is a well-nourished, well-developed patient, in no apparent distress. HEAD: normocephalic, atraumatic. EYES: PERRL. Sclera clear/white. Vision is grossly intact. EARS: External ears normal NOSE: External nose normal NECK: Neck supple, non-tender without lymphadenopathy, masses or thyromegaly. CARDIOVASCULAR: Regular rate and rhythm without murmurs, gallops, or rubs. RESPIRATORY: Clear to auscultation. Breath sounds equal bilaterally. No wheezes, rales, or rhonchi. SKIN: warm, Dry, intact with no suspicious lesions or rash, good texture and turgor. NEURO: awake, alert, and oriented to person, place and time. There were no obvious focal neurologic abnormalities. EXTREMITIES: No joint tenderness, effusion, or edema noted. Course Course Level of Care: Express Care Visit Vital Signs Vital signs: Vital Signs Temperature 36.5 C 08/10/24 10:41 Pulse Rate 69 08/10/24 10:41 Respiratory Rate 16 08/10/24 10:41 Blood Pressure 126/46 L 08/10/24 10:41 Pulse Oximetry 100 08/10/24 10:41 Oxygen Delivery Room Air 08/10/24 10:41 Temperature 36.5 C 08/10/24 10:41 Pulse Rate 69 08/10/24 10:41 Respiratory Rate 16 08/10/24 10:41 Blood Pressure 126/46 L 08/10/24 10:41 Pulse Oximetry 100 08/10/24 10:41 Oxygen Delivery Room Air 08/10/24 10:41 reviewed MDM - Female Genitourinary MDM Narrative Medical decision making narrative: urinalysis positive leukocytes, positive blood. urine culture ordered. Patient well-appearing, nontoxic. Will treat with antibiotic for urinary tract infection. Patient is stable for outpatient therapy. Patient agrees to plan of care. Differential Diagnosis Differential diagnosis: Likely urinary tract infection Lab Data Labs: Lab Results 08/10/24 Range/Units 10:45 POC Urine Color Yellow POC Urine Clarity Cloudy POC Urine pH 7.0 POC Ur Specif [place] 1.020 POC Urine Protein 3+ (Negative) POC Ur Glucose (UA) Negative (Negative) POC Urine Ketones Negative (Negative) POC Urine Blood 3+ (Negative) POC Urine Nitrite Negative (Negative) POC Urine Bilirubin Negative (Negative) POC Urine Urobilinogen 0.2 POC U Leukocyte Esteras 1+ (Negative) Discharge Plan Discharge Clinical Impression: Urinary tract infection Qualifiers: Urinary tract infection type: site unspecified Hematuria presence: with hematuria Qualified Code(s): N39.0 - Urinary tract infection, site not specified Patient Disposition: Home Condition: Stable Instructions: Antibiotic Form, Urinary Tract Infection in Women (ED) Additional Instructions: take antibiotic as prescribed until gone. May take [id number] azo as directed on packaging to treat urinary symptoms. Drink at least 64 oz of water a day. See your primary care physician if symptoms are not improving. If you have severe pain, vomiting, fever go to the ER. Patient Language: Sinhala Prescriptions: New amoxicillin-pot clavulanate [Augmentin] 500-125 mg tablet 1 tablet PO BID 5 Days Qty: 10 0RF No Action pravastatin 20 mg tablet lisinopril-hydrochlorothiazide 10-12.5 mg tablet 1 tablet PO DAILY metformin 500 mg tablet 500 mg PO BID magnesium 250 mg tablet 250 mg PO 2XW metoprolol succinate 50 mg tablet extended release 24 hr 25 mg PO QHS liothyronine 50 mcg tablet 50 mcg PO DAILY estradiol 0.01 % (0.1 mg/gram) cream 1 g vaginal 2XW Qty: 42.5 5RF cholecalciferol (vitamin D3) 250 mcg (10,000 unit) Capsule 250 mcg PO WEEKLY Patient Comments: TAKES ON WEDNESDAYS cyanocobalamin (vitamin B-12) 5,000 mcg Tablet, Sublingual 5,000 mcg SUBLINGUAL 2XW Follow-up/Referrals: Evan,Tamiko Martinez APRN [Primary Care Provider] - Time of Disposition: 10:52
== END 2024-08-10 11:00 | disposition home or self-care (01) ==
PROVIDERS: Emergency Provider Nurse Practitioner Family; PCP Registered Nurse
DX: N39.0 Urinary tract infection, site not specified (principal); E11.9 Type 2 diabetes mellitus without complications; I10 Essential (primary) hypertension; E03.9 Hypothyroidism, unspecified; Z79.84 Long term (current) use of oral hypoglycemic drugs
CPT/HCPCS: 81003; 87086; 87186; 99213; G0463